=== PATIENT | female | born 1960 | race African-American/Black ===

== ENCOUNTER 2019-06-22 16:48 | Emergency (ER) | payer BC, OTHER ==
--- OUTSIDE RECORDS SUMMARY | 2019-06-22 16:49 | XMS REPORT | Summary of Care ---
:1960 Author Organization [facility] Address [address] [place] [id number] Care Team Providers Name Role Phone Lorena Siegel Primary Care Provider Reason for Referral (Routine) Status Reason Specialty Diagnoses / Referred By Referred To Procedures Contact Contact New Request Dermatology Diagnoses Infected epidermoid cyst Dar[place], Procedures CONSULT/REFERRAL DERMATOLOGY PAM Naik [address] [place] [id number] Reason for Visit Reason Comments Abscess neck since saturday Encounter Details Date Type Department Care Team Description 05/12/2019 Urgent Care [facility] Unknown, Attending Infected epidermoid Urgent Care Heena Taveras [address] [id number] cyst (Primary Dx) [address] [facility] [place] [address] [place] [address] Allergies No Known Allergiesdocumented as of this encounter (statuses as of 05/12/2019) Medications Medication Sig Dispensed Refills Start Date End Date Status amLODIPine 5 mg Take 5 mg by 0 Active tablet mouth daily. LOSARTAN-HYDROCH Take by 0 Active LOROTHIAZIDE mouth. ORAL valsartan-hydroc Take 1 tablet 1 03/11/2018 Active hlorothiazide by mouth 320-12.5 mg per daily. tablet cephALEXin 500 Take 1 capsule 28 capsule 0 05/12/2019 Active mg by mouth 4 0 capsuleIndicatio (four) times ns: Infected daily for 7 epidermoid cyst days. pseudoephedrine- Take 1 tablet 20 tablet 0 11/04/2016 Discontinued guaifenesin by mouth every 0 (Error) (MUCINEX D) 12 (twelve) 60-600 mg per hours. tabletIndication s: Cough benzonatate Take 1 capsule 30 capsule 0 11/04/2016 Discontinued (TESSALON by mouth 3 0 (Error) PERLES) 100 mg (three) times capsuleIndicatio daily as ns: Cough needed for Cough. acetaminophen-co 1/2 - 1 tab 15 tablet 0 05/14/2018 Discontinued deine 300-30 mg Every 4hrs as 0 (Error) tabletIndication needed for s: Cough pain or cough requiring narcotic documented as of this encounter (statuses as of 05/12/2019) Active Problems No known active problemsdocumented as of this encounter (statuses as of 2019) Social History Tobacco Use Types Packs/Day Years Used Date Never Smoker Smokeless Tobacco: Never Used Sex Assigned at Date Recorded Not on file Job Start Date Occupation Industry Not on file Not on file Not on file Travel History Travel Start Travel End No recent travel history available. documented as of this encounter Last Filed Vital Signs Vital Sign Reading Time Taken Comments Blood Pressure 165/86 05/12/2019 8:47 PM [employer] Pulse 83 05/12/2019 8:46 PM [employer] Temperature 36.8 C (98.2 F) 05/12/2019 8:46 PM [employer] Respiratory Rate 18 05/12/2019 8:46 PM [employer] Oxygen Saturation 100% 05/12/2019 8:46 PM [employer] Inhaled Oxygen Concentration - - Weight 92.5 kg (204 lb) 05/12/2019 8:46 PM [employer] Height 165.1 cm (5' 5") 05/12/2019 8:46 PM [employer] Body Mass Index 33.95 05/12/2019 8:46 PM [employer] documented in this encounter Patient Instructions Patient InstructionsHeena Taveras FNP - 05/12/2019 8:30 PM [employer] Understanding Epidermoid Cyst An epidermoid cyst is a small abnormal growth in the top layers of the skin. It' s filled with keratin, the same proteins that make up your hair and nails. These cysts grow slowly. They can grow anywhere on the body. But they are most often found on the face, behind the ears, and on the chest or upper back. How to say it [id number] What causes an epidermoid cyst? In most cases, epidermoid cysts occur for no known reason. An epidermoid cyst may also occur becauseof an injury to the skin or from acne. Symptoms of an epidermoid cyst An epidermoid cyst is a subcutaneous bump. This means it is just below the skin. It may be yellow orskin-colored. It often has a small black tray in the middle of it, like a blackhead. An epidermoid cyst rarely causes pain, unless it ruptures or becomes inflamed or infected. It may ooze keratin, a white, cheesy, smelly material. If the cyst becomes inflamed or infected, it may be: Bad smelling Red Swollen Tender Treatment for an epidermoid cyst Many epidermoid cysts dont cause any problems. They dont necessarily need to be treated. They may go away on their own. But you may want to treat it if you dont like how it looks or it becomesinflamed. Treatment options include : Steroid injection. A steroid may be injected into the cyst. This may help ease inflammation. It may also prevent infection. Surgical removal. The cyst can be cut out. It may also need to be drained first. There is a slight chance the cyst may come back. Antibiotics. In some cases, you may need to take an oral antibiotic to treat infection. When to call your healthcare provider Call your healthcare provider right away if you have any of these: Fever of 100.4F (38C) or higher, or as directed by your healthcare provider Redness, swelling, or fluid leaking from your incision that gets worse Pain that gets worse Symptoms that dont get better, or get worse New symptoms [employer] last reviewed this educational content on 09/27/[id number] [employer]. [address] [place] [address], [place] [address]. All rights reserved. This information is not intended as a substitute for professional medical care. Always follow your healthcare professional's instructions. [employer] documented in this encounter Progress Notes Heena Taveras FNP - 05/12/2019 8:30 PM CST Cc: Chief Complaint Patient presents with Abscess neck since saturday Rachel Thompson is a 59 year old female that presents to the urgent care with her daughter for a boil to neck since Saturday. Her daughter looked at it on Saturday, then again today (Saturday) and reports is significantly grown in size. Abscess Location: Head/neck Head/neck abscess location: L neck Abscess quality: redness Abscess quality: not draining, no itching, not painful and no warmth Red streaking: no Duration: 3 days Progression: Worsening Chronicity: New Context: not diabetes Relieved by: Nothing Worsened by: Nothing Ineffective treatments: Draining/squeezing and warm compresses Associated symptoms: no fever Risk factors: prior abscess Allergies Rachel has No Known Allergies. Medications Outpatient Medications Prior to Visit Medication Sig Dispense Refill amLODIPine 5 mg tablet Take 5 mg by mouth daily. LOSARTAN-HYDROCHLOROTHIAZIDE ORAL Take by mouth. valsartan-hydrochlorothiazide 320-12.5 mg per tablet Take 1 tablet by mouth daily. 1 acetaminophen-codeine 300-30 mg tablet 1/2 - 1 tab Every 4hrs as needed for pain or cough requiring narcotic 15 tablet 0 benzonatate (TESSALON PERLES) 100 mg capsule Take 1 capsule by mouth 3 ( three) times daily as needed for Cough. 30 capsule 0 pseudoephedrine-guaifenesin (MUCINEX D) 60-600 mg per tablet Take 1 tablet by mouth every 12 (twelve) hours. 20 tablet 0 No facility-administered medications prior to visit. Histories Past Medical History: Diagnosis Date Hypertension Past Surgical History: Procedure Laterality Date CHOLECYSTECTOMY HYSTERECTOMY Social History Socioeconomic History Marital status: Spouse name: Not on file Number of children: Not on file Years of education: Not on file Highest education level: Not on file Occupational History Not on file Social Needs Financial resource strain: Not on file Food insecurity: Worry: Not on file Inability: Not on file Transportation needs: Medical: Not on file Non-medical: Not on file Tobacco Use Smoking status: Never Smoker Smokeless tobacco: Never Used Substance and Sexual Activity Alcohol use: Not on file Drug use: Not on file Sexual activity: Not on file Lifestyle Physical activity: Days per week: Not on file Minutes per session: Not on file Stress: Not on file Relationships Social connections: Talks on phone: Not on file Gets together: Not on file Attends holiness service: Not on file Active member of club or organization: Not on file Attends meetings of clubs or organizations: Not on file Relationship status: Not on file Intimate partner violence: Fear of current or ex partner: Not on file Emotionally abused: Not on file Physically abused: Not on file Forced sexual activity: Not on file Other Topics Concern Not on file Social History Narrative Not on file No family history on file. Review of Systems Constitutional: Negative for chills and fever. Musculoskeletal: Negative for arthralgias and myalgias. Skin: Negative for rash. +abscess to neck Neurological: Negative for weakness and numbness. Psychiatric/Behavioral: Negative for agitation and confusion. Vital Signs BP (!) 165/86 | Pulse 83 | Temp 36.8 C (98.2 F) (Oral) | Resp 18 | Ht 5 ' 5" (1.651 m) | Wt 204 lb (92.5 kg) | SpO2 100% | BMI 33.95 kg/m Does not take her blood pressure medication consistently. Physical Exam Constitutional: She is oriented to person, place, and time. She appears well- developed and well-nourished. No distress. HENT: Head: Normocephalic and atraumatic. Eyes: Conjunctivae are normal. Neck: Normal range of motion. Cardiovascular: Normal rate, regular rhythm, normal heart sounds and intact distal pulses. Pulmonary/Chest: Effort normal and breath sounds normal. Neurological: She is alert and oriented to person, place, and time. Gait normal. Skin: Skin is warm and dry. Lesion (2cm x 1cm erythematous, tender cyst noted to left posterior neck.) noted. No rash noted. Psychiatric: She has a normal mood and affect. Her behavior is normal. Thought content normal. Nursing note and vitals reviewed. Assessment/Plan 1. Infected epidermoid cyst - I&D performed at bedside: CONSENT: Verbal consent has been obtained from patient by me. PROCEDURE The area was prepared and draped in the usual, sterile manner. Patient positioned appropriately, Anesthesia with 2cc of 1% Lidocaine with Epinephrine was used. #11 blade scalpal used for single incision. Additional local anesthetic injected into surrounding viable tissue prior to blunt dissection of loculated adhesions. White colored bloody drainage expelled. Wound packed with iodoform gauze. Procedure tolerated without complications. Wound dressed with sterile 4x4 guaze and paper tape. - CONSULT/REFERRAL DERMATOLOGY - START cephALEXin 500 mg capsule; Take 1 capsule by mouth 4 (four) times daily for 7 days. Dispense: 28 capsule; Refill: 0 - Advised to follow up with PCP, return to Urgent Care, or go to the nearest Emergency Department sooner for any new, worsening, persistent, or concerning symptoms. Plan of care, desired health behaviors, goals, and medication discussed with patient. Education resources provided and reviewed with AVS. Patient/guardian/family verbalized understanding & agrees to plan of care. This visit did not involve counseling and coordination that comprised more than 50% of the visit time. Barriers to care: none. Ability to manage care: well. If applicable, the [place] [employer] database was accessed to review any controlled substance prescription claims data. The [place] prescription claims data in [employer] was reviewed to assess patient compliance with the medication treatment plan. Heena Taveras APRN, FNP-Qasim 05/12/2019 9:29 PM Estefania Lara RN - 05/12/2019 8:30 PM CST Rachel Thompson is a 59 year old female in office for the following: Chief Complaint Patient presents with Abscess neck since saturday No c/o pain, not warm to touch. All vitals taken. Allergies reviewed. All medications reviewed. Fall risk assessed. Level of pain 0. [facility]/pharmacy [address] [place] [address] Estefania Davey RN 05/12/2019 8:45 PM documented in this encounter Plan of Treatment Health Maintenance Due Date Last Done Comments HEPATITIS C (HCV) SCREEN 1960 DTaP,Tdap,and Td Vaccines (1 1972 - Tdap) PAP SMEAR 1982 Breast Cancer Screening 2001 (MAMMOGRAM) COLONOSCOPY 2011 Zoster Recombinant Vaccine 2011 (SHINGRIX) (1 of 2) INFLUENZA VACCINE (#1) 2018 02/05/2018, 02/21/2017, 02/01/2016 PNEUMOCOCCAL 0-64 YEARS Aged Out No longer eligible based COMBINED SERIES on patient's age to complete this topic documented as of this encounter Results Not on filedocumented in this encounter Visit Diagnoses Diagnosis Infected epidermoid cyst - Primary Sebaceous cyst documented in this encounter Insurance Payer Benefit Plan Subscriber ID Effective Dates Phone Address Type / Group [facility] [id number] 2016-Fredo [phone] [address] PPO/ POS [place] [facility] t [id number] [place] [address] documented as of this encounter
--- OUTSIDE RECORDS SUMMARY | 2019-06-22 16:49 | XMS REPORT ---
:1960 Author [facility] Address [address] [place] [address] Care Team Providers Name Role Phone SKIP THADDEUS Unavailable Unavailable Payers Payer Name Policy Type Policy Number Effective Date Expiration Date Problems This patient has no known problems. Allergies, Adverse Reactions, Alerts Allergy Allergy Status Severity Reaction(s) Onset Inactive Treating Comments Name Type Date Date Clinician No Known DA Active U 2012-03 Allergies -18 00:00:0 0 Medications This patient has no known medications. Encounters Start End Encounter Admission Attending Care Care Encounter Date/Time Date/Time Type Type Clinicians Facility Department ID 2017-07-15 2017-07-15 Outpatient MELISSA CHU [id number] 06:12:00 10:05:00 THADDEUS
--- OUTSIDE RECORDS SUMMARY | 2019-06-22 16:49 | XMS REPORT | Summary of Care ---
:1960 Author Organization [facility] - Health Address [address] [place] [address] Care Team Providers Name Role Phone Bekah iSegeldeeptifidencio Primary Care Provider Encounter Details Date Type Department Care Team Description 05/12/2019 Orders Only [facility] Doctor Unassigned, [address] [facility] [place] [address] [address] [place] [id number] Allergies No Known Allergiesdocumented as of this encounter (statuses as of 05/12/2019) Medications Medication Sig Dispensed Refills Start Date End Date Status amLODIPine 5 mg Take 5 mg by mouth 0 Active tablet daily. LOSARTAN-HYDROCHLOROT Take by mouth. 0 Active HIAZIDE ORAL pseudoephedrine-guaif Take 1 tablet by 20 tablet 0 11/04/2016 Active enesin (MUCINEX D) mouth every 12 60-600 mg per (twelve) hours. tabletIndications: Cough benzonatate (TESSALON Take 1 capsule by 30 capsule 0 11/04/2016 Active PERLES) 100 mg mouth 3 (three) capsuleIndications: times daily as Cough needed for Cough. valsartan-hydrochloro Take 1 tablet by 1 03/11/2018 Active thiazide 320-12.5 mg mouth daily. per tablet acetaminophen-codeine 1/2 - 1 tab Every 15 tablet 0 05/14/2018 Active 300-30 mg 4hrs as needed for tabletIndications: pain or cough Cough requiring narcotic documented as of this encounter [...] of this encounter Last Filed Vital Signs Not on filedocumented in this encounter Plan of Treatment Health [...] this topic documented as of this encounter Procedures Procedure Name Priority Date/Time Associated Diagnosis Comments NO SHOW OR MISSED Routine 05/12/2019 8:39 PM APPOINTMENT [employer]GEMENT documented in this encounter Results Not on filedocumented in this encounter Insurance Payer Benefit Plan / Subscriber ID Effective Phone Address Type Group Dates [facility] [id number] 2016-Pres [facility] ent [facility] [id number] 2016-Pres [phone] [address] PPO/POS [employer] ent [id number] [place] [address] documented as of this encounter
[2019-06-22 17:58] LABS: Basophils % 0.5 % (0-1.3); Hematocrit 37.6 % (36.0-45.0); Lymphocytes % 36.5 % (15.3-44.8); MPV 8.1 fL (7.6-11.3); RBC Red Blood Cell Count 4.32 M/uL (3.86-4.86)
[2019-06-22 18:11] LABS: Protime INR 1.08
[2019-06-22 18:22] LABS: ALT/SGPT 20 U/L (12-78); AST/SGOT 21 U/L (15-37); Albumin 3.8 g/dL (3.4-5.0); Alkaline Phosphatase 94 U/L (45-117); BUN Blood Urea Nitrogen 13 mg/dL (7-18); Bicarbonate 29 mmol/L (21-32); Bilirubin Direct < 0.1 mg/dL (0-0.2); Bilirubin Total 0.3 mg/dL (0.2-1.0); Glucose Level 112 mg/dL (74-106); NT PRO-BNP 23 pg/mL (<125); Potassium 3.4 mmol/L (3.5-5.1); Protein, Total 8.4 g/dL (6.4-8.2); Sodium Level 139 mmol/L (136-145); Troponin (Emerg Dept Use Only) < 0.02 ng/mL (0.0-0.045)
--- NOTE | 2019-06-22 18:33 | RAD REPORT ---
EXAM DESCRIPTION: RAD - Chest Single View - 06/22/2019 6:25 pm CLINICAL HISTORY: Dizziness Chest pain. COMPARISON: CHEST SINGLE VIEW dated 04/08/2012 FINDINGS: Portable technique limits examination quality. The lungs are grossly clear. The heart is upper limit normal in size. No displaced fractures. IMPRESSION: No acute intrathoracic process suspected.
--- NOTE | 2019-06-22 18:42 | RAD REPORT ---
EXAM DESCRIPTION: CT - Head Brain Wo Cont - 06/22/2019 6:31 pm CLINICAL HISTORY: DIZZINESS Headache, drowsiness COMPARISON: No comparisons TECHNIQUE: All CT scans are performed using dose optimization technique as appropriate and may inclu de automated exposure control or mA/KV adjustment according to patient size. FINDINGS: No intracranial hemorrhage, hydrocephalus or extra-axial fluid collection.No areas of brai n edema or evidence of midline shift. The paranasal sinuses and mastoids are clear. The calvarium is intact. IMPRESSION: No acute intracranial abnormality.
--- NOTE | 2019-06-22 22:46 | EDPHYS ---
Physician Documentation [facility] Name: Rachel Thompson Age: 59 yrs Sex: Female : 1960 Arrival Date: 06/22/2019 Time: 16:51 Bed 7 Private MD: ED Physician Yulisa Cano HPI: 06/22 17:49 This 59 yrs old Black Female presents to ER via Ambulatory with complaints of pm1 Dizziness, Weakness, Nausea. 17:49 The patient presents with sense of spinning. Onset: The symptoms/episode began/occurred pm1 Around 1600. Context: occurred at work, occurred while the patient was sitting, just prior to the episode the patient experienced. Modifying factors: The symptoms are alleviated by closing eyes, relaxation, the symptoms are aggravated by nothing. Associated signs and symptoms: Pertinent negatives: abdominal pain, chest pain, numbness, palpitations, shortness of breath, tingling. Severity of symptoms: in the emergency department the symptoms have resolved. Patient's baseline: Neuro: alert and fully oriented, Motor: no deficits, Ambulation: walks without assistance, Speech: normal. The patient has not experienced similar symptoms in the past. It is unknown whether or not the patient has recently seen a physician. Patient was sitting at her desk listening to the [employer] and she started to have a sensation of hot flashes with the sensation of the room spinning and nausea. She closed her eyes and concentrated on relaxing and her symptoms improved. Historical: - Allergies: 17:15 No Known Allergies; iw - Home Meds: 17:15 valsartan oral oral [Active]; iw - PMHx: 17:15 Hypertension; iw - PSHx: 17:15 Cholecystectomy; Hysterectomy; iw - Immunization history:: Adult Immunizations up to date. - Coronavirus screen:: The patient has NOT traveled to [place] in the past 14 days. Proceed with normal triage process as indicated. - Social history:: Smoking status: Patient denies any tobacco usage or history of. - Ebola Screening: : Patient negative for fever greater than or equal to 101.5 degrees Fahrenheit, and additional compatible Ebola Virus Disease symptoms Patient denies exposure to infectious person Patient denies travel to an Ebola-affected area in the 21 days before illness onset No symptoms or risks identified at this time. ROS: 17:49 Constitutional: Negative for fever, chills, and weight loss, Eyes: Negative for injury, pm1 pain, redness, and discharge, ENT: Negative for injury, pain, and discharge, Neck: Negative for injury, pain, and swelling, Cardiovascular: Negative for chest pain, palpitations, and edema, Respiratory: Negative for shortness of breath, cough, wheezing, and pleuritic chest pain. 17:49 Back: Negative for injury and pain, MS/Extremity: Negative for injury and deformity, Skin: Negative for injury, rash, and discoloration. 17:49 Abdomen/GI: Positive for nausea, Negative for abdominal pain, vomiting, diarrhea. 17:49 Neuro: Positive for dizziness, Generalized weakness, Negative for numbness, tingling. Exam: 17:49 Constitutional: This is a well developed, well nourished patient who is awake, alert, pm1 and in no acute distress. Head/Face: Normocephalic, atraumatic. Eyes: Pupils equal round and reactive to light, extra-ocular motions intact. Lids and lashes normal. Conjunctiva and sclera are non-icteric and not injected. Cornea within normal limits. Periorbital areas with no swelling, redness, or edema. ENT: Nares patent. No nasal discharge, no septal abnormalities noted. Tympanic membranes are normal and external auditory canals are clear. Oropharynx with no redness, swelling, or masses, exudates, or evidence of obstruction, uvula midline. Mucous membranes moist. Neck: Trachea midline, no thyromegaly or masses palpated, and no cervical lymphadenopathy. Supple, full range of motion without nuchal rigidity, or vertebral point tenderness. No Meningismus. Chest/axilla: Normal chest wall appearance and motion. Nontender with no deformity. No lesions are appreciated. Cardiovascular: Regular rate and rhythm with a normal S1 and S2. No gallops, murmurs, or rubs. Normal PMI, no JVD. No pulse deficits. Respiratory: Lungs have equal breath sounds bilaterally, clear to auscultation and percussion. No rales, rhonchi or wheezes noted. No increased work of breathing, no retractions or nasal flaring. Abdomen/GI: Soft, non-tender, with normal bowel sounds. No distension or tympany. No guarding or rebound. No evidence of tenderness throughout. Back: No spinal tenderness. No costovertebral tenderness. Full range of motion. Skin: Warm, dry with normal turgor. Normal color with no rashes, no lesions, and no evidence of cellulitis. MS/ Extremity: Pulses equal, no cyanosis. Neurovascular intact. Full, normal range of motion. 17:49 Neuro: Exam negative for acute changes, Orientation: is normal, Motor: is normal, moves all fours. Vital Signs: 17:15 BP 154 / 81; Pulse 59; Resp 16; Temp 97.7; Pulse Ox 97% on R/A; Weight 90.72 kg; Height iw 5 ft. 3 in. (160.02 cm); 18:38 BP 134 / 78; Pulse 65; Resp 17; Pulse Ox 99% ; sv 19:26 BP 148 / 66; Pulse 73; Resp 19 S; Pulse Ox 100% on R/A; ca1 20:29 BP 138 / 66; Pulse 73; Resp 16 S; Pulse Ox 100% on R/A; ca1 21:11 BP 152 / 64; Pulse 72; Resp 18; Pulse Ox 98% on R/A; ca1 22:00 BP 129 / 66; Pulse 63; Resp 18; Pulse Ox 97% on R/A; rv 22:30 BP 139 / 68; Pulse 66; Resp 16; Pulse Ox 97% on R/A; rv 17:15 Body Mass Index 35.43 (90.72 kg, 160.02 cm) iw MDM: 17:29 Patient medically screened. pm1 22:36 Data reviewed: vital signs. Data interpreted: Pulse oximetry: on room air is 98 %. pm1 Interpretation: normal. Counseling: I had a detailed discussion with the patient and/or guardian regarding: the historical points, exam findings, and any diagnostic results supporting the discharge/admit diagnosis, lab results, radiology results, the need for outpatient follow up, to return to the emergency department if symptoms worsen or persist or if there are any questions or concerns that arise at home. 06/22 17:30 Order name: Basic Metabolic Panel pm06/22 17:30 Order name: CBC with Diff pm06/22 17:30 Order name: LFT's pm06/22 17:30 Order name: Magnesium pm06/22 17:30 Order name: NT PRO-BNP pm06/22 17:30 Order name: PT-INR pm06/22 17:30 Order name: Troponin (emerg Dept Use Only) pm1 06/22 18:16 Order name: CBC with Automated Diff; Complete Time: 18:19 EDMS 06/22 18:24 Order name: Protime (+INR); Complete Time: 18:25 EDMS 06/22 18:34 Order name: Basic Metabolic Panel; Complete Time: 18:46 EDMS 06/22 18:34 Order name: Liver (Hepatic) Function; Complete Time: 18:46 EDMS 06/22 18:34 Order name: Troponin (Emerg Dept Use Only); Complete Time: 18:46 EDMS 06/22 18:34 Order name: NT PRO-BNP; Complete Time: 18:46 EDMS 06/22 18:34 Order name: Magnesium; Complete Time: 18:46 EDMS 06/22 17:30 Order name: XRAY Chest (1 view) pm06/22 17:30 Order name: EKG; Complete Time: 17:56 pm1 06/22 17:30 Order name: Cardiac monitoring; Complete Time: 17:32 pm1 06/22 17:30 Order name: EKG - Nurse/Tech; Complete Time: 17:32 pm1 06/22 17:30 Order name: IV Saline Lock; Complete Time: 17:48 pm1 06/22 17:30 Order name: Labs collected and sent; Complete Time: 17:48 pm1 06/22 17:30 Order name: O2 Per Protocol; Complete Time: 17:32 pm1 06/22 17:30 Order name: O2 Sat Monitoring; Complete Time: 17:33 pm1 06/22 17:30 Order name: CT Head Brain wo Cont pm06/22 21:24 Order name: Troponin (emerg Dept Use Only) pm06/22 22:33 Order name: Troponin (Emerg Dept Use Only); Complete Time: 22:35 EDMS EC:33 Rate is 58 beats/min. QT interval is normal. No Q waves. T waves are Normal. No ST pm1 changes noted. Clinical impression: Sinus bradycardia. Administered Medications: No medications were administered Disposition: 06/22/19 22:36 Discharged to Home. Impression: Dizziness and giddiness. - Condition is Stable. - Discharge Instructions: Dizziness. - Work release form, Medication Reconciliation Form, Thank You Letter, Antibiotic Education, Prescription Opioid Use form. - Follow up: Emergency Department; When: As needed; Reason: Worsening of condition. Follow up: Private Physician; When: 2 - 3 days; Reason: Recheck today's complaints, Continuance of care, Re-evaluation by your physician. - Problem is new. - Symptoms have improved. Addendum: 06/30/2019 07:39 Co-signature as Attending Physician, Yulisa Cano MD. m a2 Signatures: Dispatcher [employer] EDBonny Tang RN RN iw Arsenio Al NP HALVER MACHINE OPERATOR pm1 Yulisa Cano MD MD ma2 Ravinder Cevallos RN RN rv Corrections: (The following items were deleted from the chart) 06/22 22:45 22:36 06/22/2019 22:36 Discharged to Home. Impression: Dizziness and giddiness. rv Condition is Stable. Forms are Medication Reconciliation Form, Thank You Letter, Antibiotic Education, Prescription Opioid Use. Follow up: Emergency Department; When: As needed; Reason: Worsening of condition. Follow up: Private Physician; When: 2 - 3 days; Reason: Recheck today's complaints, Continuance of care, Re-evaluation by your physician. Problem is new. Symptoms have improved. pm1
--- NOTE | 2019-06-22 22:46 | ER ---
Nurse's Notes [facility] Name: Rachel Thompson Age: 59 yrs Sex: Female : 1960 Arrival Date: 06/22/2019 Time: 16:51 Bed 7 Private MD: Diagnosis: Dizziness and giddiness Presentation: 06/22 17:12 Presenting complaint: Patient states: this afternoon started feeling hot and clammy and iw the room started spinning also is nauseated. Transition of care: patient was not received from another setting of care. 17:12 Method Of Arrival: Ambulatory iw 17:14 Onset of symptoms was June 22, 2019. Risk Assessment: Do you want to hurt yourself iw or someone else? Patient reports no desire to harm self or others. Initial Sepsis Screen: Does the patient meet any 2 criteria? No. Patient's initial sepsis screen is negative. Does the patient have a suspected source of infection? No. Patient's initial sepsis screen is negative. Care prior to arrival: None. 17:14 Acuity: LAUREN 3 iw Historical: - Allergies: 17:15 No Known Allergies; iw - Home Meds: 17:15 valsartan oral oral [Active]; iw - PMHx: 17:15 Hypertension; iw - PSHx: 17:15 Cholecystectomy; Hysterectomy; iw - Immunization history:: Adult Immunizations up to date. - Coronavirus screen:: The patient has NOT traveled to [place] in the past 14 days. Proceed with normal triage process as indicated. - Social history:: Smoking status: Patient denies any tobacco usage or history of. - Ebola Screening: : Patient negative for fever greater than or equal to 101.5 degrees Fahrenheit, and additional compatible Ebola Virus Disease symptoms Patient denies exposure to infectious person Patient denies travel to an Ebola-affected area in the 21 days before illness onset No symptoms or risks identified at this time. Screenin:22 Abuse screen: Denies threats or abuse. Denies injuries from another. Nutritional ca1 screening: No deficits noted. Tuberculosis screening: No symptoms or risk factors identified. Fall Risk IV access (20 points). Assessment: 17:22 General: Appears in no apparent distress. comfortable, Behavior is calm, cooperative, ca1 appropriate for age. Pain: Denies pain. Neuro: Level of Consciousness is awake, alert, obeys commands, Oriented to person, place, time, situation, Appropriate for age Yard Hand are equal bilaterally Moves all extremities. Gait is steady, Speech is normal, Facial symmetry appears normal, Pupils are PERRLA, Reports dizziness, since today. Cardiovascular: Heart tones S1 S2 present Capillary refill < 3 seconds Patient's skin is warm and dry. Respiratory: Airway is patent Respiratory effort is even, unlabored, Respiratory pattern is regular, symmetrical, GI: Abdomen is round non-distended, Bowel sounds present X 4 quads. Abd is soft and non tender X 4 quads. Reports nausea. : No signs and/or symptoms were reported regarding the genitourinary system. EENT: No signs and/or symptoms were reported regarding the EENT system. Derm: Skin is intact, is healthy with good turgor, Skin is pink, warm \T\ dry. Musculoskeletal: Circulation, motion, and sensation intact. Capillary refill < 3 seconds, Range of motion: intact in all extremities. 17:24 Reassessment: YORDAN Cesar at bedside. ca1 18:38 Reassessment: Patient appears in no apparent distress at this time. No changes from ca1 previously documented assessment. Patient and/or family updated on plan of care and expected duration. Pain level reassessed. Patient is alert, oriented x 3, equal unlabored respirations, skin warm/dry/pink. 19:26 Reassessment: Patient appears in no apparent distress at this time. Patient and/or ca1 family updated on plan of care and expected duration. Pain level reassessed. Patient is alert, oriented x 3, equal unlabored respirations, skin warm/dry/pink. 20:29 Reassessment: Patient appears in no apparent distress at this time. Patient and/or ca1 family updated on plan of care and expected duration. Pain level reassessed. Patient is alert, oriented x 3, equal unlabored respirations, skin warm/dry/pink. 21:11 Reassessment: Patient appears in no apparent distress at this time. Patient and/or ca1 family updated on plan of care and expected duration. Pain level reassessed. Patient is alert, oriented x 3, equal unlabored respirations, skin warm/dry/pink. 22:41 Reassessment: Patient appears in no apparent distress at this time. Patient and/or rv family updated on plan of care and expected duration. Pain level reassessed. Patient is alert, oriented x 3, equal unlabored respirations, skin warm/dry/pink. ARSENIO TALKED TO THE PATIENT REGARDING TEST RESULTS. Vital Signs: 17:15 BP 154 / 81; Pulse 59; Resp 16; Temp 97.7; Pulse Ox 97% on R/A; Weight 90.72 kg; Height iw 5 ft. 3 in. (160.02 cm); 18:38 BP 134 / 78; Pulse 65; Resp 17; Pulse Ox 99% ; sv 19:26 BP 148 / 66; Pulse 73; Resp 19 S; Pulse Ox 100% on R/A; ca1 20:29 BP 138 / 66; Pulse 73; Resp 16 S; Pulse Ox 100% on R/A; ca1 21:11 BP 152 / 64; Pulse 72; Resp 18; Pulse Ox 98% on R/A; ca1 22:00 BP 129 / 66; Pulse 63; Resp 18; Pulse Ox 97% on R/A; rv 22:30 BP 139 / 68; Pulse 66; Resp 16; Pulse Ox 97% on R/A; rv 17:15 Body Mass Index 35.43 (90.72 kg, 160.02 cm) iw ED Course: 16:51 Patient arrived in ED. rg4 17:14 Triage completed. iw 17:15 Arm band placed on. iw 17:18 Sirena Kirby, BRII is Primary Nurse. ca1 17:20 Arsenio Al MANAGER REGIONAL is PHCP. pm1 17:20 Yulisa Cano MD is Attending Physician. pm1 17:22 Patient has correct armband on for positive identification. Placed in gown. Bed in low ca1 position. Call light in reach. Side rails up X2. school lunch monitor on. Pulse ox on. NIBP on. Warm blanket given. 17:22 No provider procedures requiring assistance completed. ca1 17:40 Missed attempt(s): 20 gauge in right antecubital area. Bleeding controlled, band aid ca1 applied, catheter tip intact. 17:48 Initial lab(s) drawn, by me, sent to lab. Inserted saline lock: 22 gauge in left upper ca1 arm, using aseptic technique. Blood collected. 21:52 Repeat lab(s) drawn. by me, sent to lab. ca1 22:41 IV discontinued, intact, bleeding controlled, No redness/swelling at site. Pressure rv dressing applied. Administered Medications: No medications were administered Outcome: 22:36 Discharge ordered by MD. pm1 22:41 Discharged to home ambulatory. rv 22:41 Condition: good 22:41 Discharge instructions given to patient, Instructed on discharge instructions, follow up and referral plans. Demonstrated understanding of instructions, follow-up care. 22:45 Patient left the ED. rv Signatures: Tanya Michele, RN RN Bonny Munson RN BRII iw Arsenio Al, MANAGER REGIONAL MANAGER REGIONAL pm1 Saira Saavedra rg4 Ravinder Cevallos RN RN rv Sirena Kirby RN RN ca1 Corrections: (The following items were deleted from the chart) 21:53 17:48 Lab(s) recollected, by me, by EMS personnel. ca1 ca1
[2019-06-23 00:24] VITALS: TEMP 97.7
[2019-06-23 00:31] VITALS: O2SAT 97
[2019-06-23 00:33] VITALS: BP 139/68
--- NOTE | 2019-06-23 08:42 | EKG ---
Test Date: 2019-06-22 Test Time: 17:32:21 Shade Maker: CARLA MEASUREMENT RESULTS: Intervals: Rate: 58 IL: 166 QRSD: 82 QT: 436 QTc: 428 [place]: P: 71 IL: 166 QRS: -18 T: -72 INTERPRETIVE STATEMENTS: Sinus bradycardia Left ventricular hypertrophy with repolarization abnormality Abnormal ECG Compared to ECG 04/08/2012 17:15:43 Early repolarization now present Sinus rhythm no longer present ST (T wave) deviation no longer present Electronically Signed On 06-23-19 08:41:08 SERGING MACHINE OPERATOR by Graham Nichols
== END 2019-06-22 22:45 | disposition home or self-care (01) ==
LOC: ER 16:48
DX: R42 Dizziness and giddiness (principal); I10 Essential (primary) hypertension
CPT/HCPCS: 36415; 70450; 71045; 80048; 80076; 83735; 83880; 84484; 85025; 85610; 93005; 99284